=== PATIENT | female | born 1990 | race Two or more races ===

== ENCOUNTER 2021-08-28 16:45 | Emergency (ER) | payer OTHER ==
[2021-08-28] MEDS ORDERED: ACETAMINOPHEN 325 MG TABLET (FP) PO ONE (16:56)
[2021-08-28 17:00] VITALS: BP 113/78; PULSE 87; TEMP 99.4; BMI 30.9
[2021-08-28] MEDS ORDERED: ACETAMINOPHEN 325 MG TABLET (FP) ONE (17:11)
== END 2021-08-28 17:23 | disposition home or self-care (01) ==
LOC: FER 16:45
DX: J06.9 Acute upper respiratory infection, unspecified (principal)
CPT/HCPCS: 87804; 87807; 99283-25; C9803; U0003; U0005